=== PATIENT | female | born 1965 | race Caucasian/White ===

== ENCOUNTER → 2020-03-26 | Outpatient (CLI) | payer BC | LOC: CARD 13:32 | PROVIDERS: ATTEND Family Medicine | DX: R55 Syncope and collapse (principal) | CPT/HCPCS: 93306 ==

== ENCOUNTER → 2020-05-13 | Outpatient (CLI) | payer BC ==
[2020-05-15 13:05] VITALS: BP 112/68
--- NOTE | 2020-05-15 13:05 | Cardiology Stress Test Report ---
Stress Test Report Date of Procedure/Referring: Date of Procedure: May 13, 2020 PCP Yessenia Chao MD Admitting Physician Mainor Conde MD Indications: Palpitation Baseline Heart Rate: 80 Baseline Blood Pressure: Blood Pressure Systolic: 112 Blood Pressure Diastolic: 68 Baseline EKG: Baseline EKG: NSR Summary/Conclusion: Summary: In summary, the patient started exercising with a baseline heart rate, blood pressure and EKG mentioned above Patient was able to exercise for a total of 7:30minutes on Lake protocol, METs 9.1 Maximum heart rate 151 Maximum blood pressure 154/81 Stress EKG, Minimal nondiagnostic changes Recovery EKG , Return to baseline Conclusion: 1. Good exercise tolerance for a total of 7:30 minutes on Lake protocol, 9.1 METs, achieving 92 percent of maximum expected heart rate 2. Minimal nondiagnostic EKG changes with exercise returned to baseline during recovery 3. No arrhythmia was noted YESSENIA CHAO MD May 15, 2020 13:05
== END ==
LOC: CARD 09:41
PROVIDERS: ATTEND Internal Medicine Cardiovascular Disease
DX: E78.2 Mixed hyperlipidemia (principal)
CPT/HCPCS: 93351

== ENCOUNTER → 2020-09-30 | Outpatient (CLI) | payer BC ==
[2020-09-30 09:41] LABS: ALKALINE PHOSPHATASE 75 U/L (40-136); BILIRUBIN,TOTAL 0.3 MG/DL (0.1-1.0); BUN/CREATININE RATIO 32; CALCIUM 9.7 MG/DL (8.5-10.1); CARBON DIOXIDE 30 MMOL/L (21-32); CHLORIDE 105 MMOL/L (98-107); CREATININE SERUM 0.71 MG/DL (0.60-1.30); GFR ESTIMATED > 60; GLUCOSE 97 MG/DL (70-105); POTASSIUM 4.2 MMOL/L (3.6-5.0); SODIUM 140 MMOL/L (135-145)
[2020-09-30 09:42] LABS: ALANINE AMINOTRANSFERASE 13 U/L (0-55); ALBUMIN 4.3 GM/DL (3.2-4.5); TOTAL PROTEIN 6.8 GM/DL (6.4-8.2)
[2020-09-30 15:09] LABS: CHOLESTEROL 198 MG/DL (< 200); HDL CHOLESTEROL 73 MG/DL (40-60); TRIGLYCERIDES 57 MG/DL (<150); VLDL CHOLESTEROL 11 MG/DL (5-40)
== END ==
LOC: LAB FS 08:56
PROVIDERS: ATTEND Internal Medicine Cardiovascular Disease
DX: E78.2 Mixed hyperlipidemia (principal)
CPT/HCPCS: 36415; 80053; 80061

== ENCOUNTER → 2021-01-28 | Outpatient (CLI) | payer BC | LOC: CARD 15:01 | PROVIDERS: ATTEND Internal Medicine Cardiovascular Disease | DX: I49.9 Cardiac arrhythmia, unspecified (principal) | CPT/HCPCS: 93225; 93226 ==

== ENCOUNTER 2022-06-08 05:47 | Outpatient (CLI) | payer BC ==
[~2022-06-08] VITALS: Ht 162.6 cm; Wt 72.6 kg
[2022-06-08] MEDS ORDERED: PROG50VI2 EXT (08:55)
== END 2022-06-08 08:59 | disposition home or self-care (01) ==
LOC: PREOP 05:47
PROVIDERS: ATTEND Surgery
DX: Z01.818 Encounter for other preprocedural examination (principal)

== ENCOUNTER 2022-06-20 08:04 | Day surgery (SDC) | payer BC ==
[~2022-06-20] VITALS: Ht 163 cm; Wt 72.6 kg
[~2022-06-20 08:04] MED LIST: PROG50VI2 EXT
[2022-06-20] MEDS ORDERED: LACTATED RINGERS 1,000 ML IV STA (08:05)
[2022-06-20 08:40] VITALS: BP 129/71
--- NOTE | 2022-06-20 08:52 | Progress Note-Pre Operative ---
Pre-Operative Progress Note Date of Available H&P: May 26, 2022 Date H&P Reviewed: Jun 20, 2022 Time H&P Reviewed: 08:51 History & Physical: H&P Reviewed, Patient Examed, No changes noted Pre-Operative Diagnosis: +JOCY Romeo DO Jun 20, 2022 08:52
[2022-06-20] MEDS ORDERED: MIDAZOLAM 2 MG/2 ML (VERSED) VIAL ONE (09:15)
[2022-06-20] MEDS ORDERED: PROPOFOL INJECTION 50 ML IV ONE (09:15)
[2022-06-20] MEDS ORDERED: ATROPINE INJ 0.4 MG/ML SDV ONE (09:28)
[2022-06-20] MEDS ORDERED: EPINEPHrine INJECTION 1 MG/ML AMP ONE (09:34)
[2022-06-20 09:51] VITALS: BP 89/57
--- NOTE | 2022-06-20 09:54 | Progress Note-Post Operative ---
Post-Operative Progess Note Surgeon (s)/Draw Fire Operator (s) Surgeon JOCY DECKER DO Draw Fire Operator: none Pre-Operative Diagnosis +Cologuard Post-Operative Diagnosis Polyp diverticula int hemorrhoids Procedure & Operative Findings Date of Procedure 06/20/22 Procedure Performed/Findings Colonoscopy with hot bx PROCEDURE NOTE: After informed consent was obtained, the patient was brought to the endoscopy suite, placed in bed in left lateral decubitus position. She was administered IV sedation by the INDUCTOR TESTER who then monitored her vitals the entire time, heart rate, blood pressure and pulse ox and the scope was inserted, pushed all the way to about 150 cm and pushed into the cecum, took a picture of appendiceal orifice and noted the ileocecal valve. Then slowly withdrew the scope insufflating to look circumferentially at the bauer starting in the cecum, up the ascending colon to the hepatic flexure, then down the transverse colon to the splenic flexure and into the descending colon. Here I found a small flat polyp, that I elected to remove with hot biopsy. I also saw some diverticula on the right and left side, took a picture. Continued down into the sigmoid and then into the rectal vault and retroflexed the scope. Took picture of the internal hemorrhoids. The patient tolerated the procedure. She was recovered in endoscopy suite. Recommended for repeat colonoscopy in 5 years. Anesthesia Type IV sedation by INDUCTOR TESTER Estimated Blood Loss Estimated blood loss (mL): scant Specimens/Packing Specimens Removed desc colon polyp JOCY DECKER DO Jun 20, 2022 09:54
--- NOTE | 2022-06-20 09:55 | Endoscopy Discharge Instruct ---
Endo Procedure/Findings Findings 1.: Polyp 2.: Diverticulosis 3.: Internal Hemorrhoids Discharge Instructions - Activity: You might feel a little sleepy until tomorrow. This is due to the medicine you received to relax you. Until tomorrow, you should: NOT drive a car, operate machinery or power tools. NOT drink any alcoholic beverages. NOT make any important decisions or sign importortant papers. Do not return to work until tomorrow, unless otherwise instructed. Resume previous activities tomorrow. Diet: Start by taking liquids. If you tolerate liquids, advance to solid food. 1.: Colonscopy in 5 years Notify Physician - If you experience excessive bleeding, unusual abdominal pain, fever, or chest pain, contact your doctor immediately. Follow-Up: Other Follow up in one week JOCY DECKER DO Jun 20, 2022 09:55
[2022-06-20 09:56] VITALS: BP 110/64
[2022-06-20 10:00] VITALS: BP 110/64
[2022-06-20 11:00] VITALS: BP 116/85
--- NOTE | 2022-06-20 15:34 | Anesthesia-General Post-Op ---
MAC Patient Condition Mental Status/LOC: Same as Preop Cardiovascular: Satisfactory Nausea/Vomiting: Absent Respiratory: Satisfactory Pain: Controlled Complications: Absent Post Op Complications Complications None Follow Up Care/Instructions Patient Instructions None needed. Anesthesiology Discharge Order Discharge Order Patient is doing well, no complaints, stable vital signs, no apparent adverse anesthesia problems. No complications reported per nursing. RONY BEAN CRNA Jun 20, 2022 15:34
== END 2022-06-20 11:08 | disposition home or self-care (01) ==
LOC: ENDO 08:04
PROVIDERS: ATTEND Surgery
DX: Z12.11 Encounter for screening for malignant neoplasm of colon (principal); K63.5 Polyp of colon; K57.30 Diverticulosis of large intestine without perforation or abscess without bleeding; K64.8 Other hemorrhoids